=== PATIENT | female | born 2000 | race African-American/Black ===

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

== ENCOUNTER 2018-01-11 18:37 | Emergency (ER) | payer BC, SELFPAY ==
[2018-01-11 19:10] LABS: Bilirubin Negative (Negative); Blood, Urine Negative (Negative); Clarity Clear (Clear); Glucose, Urine (Dipstick) 500 mg/dL (Negative); Leukocyte Negative (Negative); Nitrite Negative (Negative); Protein, Urine (Dipstick) 100 mg/dL (Neg-Trace); Specific Gravity, Urine 1.025 (1.005-1.030); Urobilinogen 0.2 mg/dL (0.2-1.0)
[2018-01-11 19:12] LABS: Pregnancy Test - Urine (BHCG) Negative (Negative); Pregu Control Background? CLEAR/WHITE (CLR/WHITE); Pregu Control Bar Appear? YES (CONTROL BAR); Specific Gravity 1.025 (1.002-1.036)
[2018-01-11 19:22] LABS: Bacteria/HPF Rare-Few HPF (None Seen); RBC/HPF None Seen HPF (0-3); WBC/HPF None Seen HPF (0-3)
[2018-01-11 19:25] LABS: ALT (SGPT) 9 U/L (8-55); AST (SGOT) 10 U/L (5-30); Albumin 4.1 g/dL (3.5-5.0); Alkaline Phosphatase 90 U/L (40-150); Anion Gap 12 mmol/L (10-20); BUN (Urea Nitrogen) 10 mg/dL (8.4-21.0); Bilirubin, Total 0.5 mg/dL (0.2-1.2); Calc. Creatinine Clearance 0 mL/min (70-130); Calcium 9.7 mg/dL (7.8-10.44); Carbon Dioxide 27 mmol/L (22-29); Chloride 104 mmol/L (98-107); Estimated GFR-MDRD Greater than 90; Glucose 261 mg/dL (70-105); Lipase 78 U/L (8-78); Potassium 3.5 mmol/L (3.5-5.1); Protein, Total 7.1 g/dL (6.0-8.3); Sodium 139 mmol/L (136-145)
[2018-01-11 19:32] LABS: Band 2 % (5-11); Eosinophils 1 % (0-10); Hemoglobin 12.7 g/dL (12.0-16.0); Lymphocytes 20 % (28-48); MDiff Complete? YES; Mean Corpuscular HGB CONC 32.7 g/dL (32.0-36.0); Mean Corpuscular Hemoglobin 27.7 pg (25.0-35.0); Mean Corpuscular Volume 84.6 fl (77.0-87.0); Mean Platelet Volume 8.5 fL (7.4-10.4); Monocytes 8 % (0-4); Neutrophil 68 % (31-61); PLT Morphology Comment Appears Adequate; Platelet Count 254 thou/uL (130-400); RBC Distribution Width 11.6 % (11.5-14.5); RBC Morphology Normal; White Blood Cell (WBC) Count 10.5 thou/uL (4.8-10.8)
== END 2018-01-11 19:51 | disposition home or self-care (01) ==
LOC: SCSER 18:37
DX: A60.04 Herpesviral vulvovaginitis (principal); E10.9 Type 1 diabetes mellitus without complications; J45.909 Unspecified asthma, uncomplicated
CPT/HCPCS: 80053; 81003; 81015; 81025; 83690; 85025; 87480; 87491; 87510; 87591; 87660; 99284

== ENCOUNTER 2018-01-17 17:25 | Emergency (ER) | payer SELFPAY ==
[2018-01-17] MEDS ORDERED: Azithromycin 250 MG TAB ONE (18:44)
== END 2018-01-17 19:01 | disposition home or self-care (01) ==
LOC: ERS 17:25
DX: A56.02 Chlamydial vulvovaginitis (principal); E10.9 Type 1 diabetes mellitus without complications; J45.909 Unspecified asthma, uncomplicated; F17.210 Nicotine dependence, cigarettes, uncomplicated
CPT/HCPCS: 99406

== ENCOUNTER 2018-04-09 17:26 | Emergency (ER) | payer SELFPAY ==
[~2018-04-09 17:26] MED LIST: Iopamidol 370 76% 100 ML VIAL ONE
[2018-04-09] MEDS ORDERED: Ondansetron HCl/PF 4 MG/2 ML Vial ONE ×2 (18:21→19:01)
[2018-04-09 19:05] LABS: Hemoglobin 14.1 g/dL (12.0-16.0); Mean Corpuscular HGB CONC 33.6 g/dL (32.0-36.0); Mean Corpuscular Hemoglobin 28.3 pg (25.0-35.0); Mean Corpuscular Volume 84.1 fL (78.0-98.0); Mean Platelet Volume 9.8 fL (7.4-10.4); Platelet Count 202 thou/uL (130-400); RBC Distribution Width 11.2 % (11.5-14.5); Red Blood Cell (RBC) Count 4.98 mill/uL (4.00-5.20); White Blood Cell (WBC) Count 11.1 thou/uL (4.8-10.8)
[2018-04-09 19:14] LABS: ALT (SGPT) 10 U/L (8-55); AST (SGOT) 26 U/L (5-34); Albumin 4.3 g/dL (3.5-5.0); Alkaline Phosphatase 111 U/L (40-150); Anion Gap 17 mmol/L (10-20); BUN (Urea Nitrogen) 6 mg/dL (7.0-18.7); Bilirubin, Total 0.4 mg/dL (0.2-1.2); Calc. Creatinine Clearance 0 mL/min (70-130); Carbon Dioxide 22 mmol/L (22-29); Chloride 105 mmol/L (98-107); Estimated GFR-MDRD Greater than 90; Globulin 3.7 g/dL (2.4-3.5); Glucose 264 mg/dL (70-105); Lipase 22 U/L (8-78); Potassium 4.6 mmol/L (3.5-5.1); Sodium 139 mmol/L (136-145)
[2018-04-09 19:18] LABS: Eosinophils 2 % (0-10); Lymphocytes 18 % (28-48); MDiff Complete? YES; Monocytes 8 % (0-4); Neutrophil 72 % (31-61)
[2018-04-09] MEDS ORDERED: Ondansetron ODT 4 MG TAB ONE (19:28)
[2018-04-09 19:40] LABS: Bilirubin Negative (Negative); Blood, Urine Negative (Negative); Clarity Clear (Clear); Glucose, Urine (Dipstick) 500 mg/dL (Negative); Leukocyte Negative (Negative); Nitrite Negative (Negative); Protein, Urine (Dipstick) Negative (Neg-Trace); Urobilinogen 0.2 mg/dL (0.2-1.0); pH, Urine 7.5 (5.0-9.0)
[2018-04-09 19:41] LABS: Pregnancy Test - Urine (BHCG) Negative (Negative); Pregu Control Background? CLEAR/WHITE (CLR/WHITE); Pregu Control Bar Appear? YES (CONTROL BAR)
--- NOTE | 2018-04-09 21:13 | CT ---
ABDOMEN CT WITHOUT CONTRAST: PELVIS CT WITHOUT CONTRAST: HISTORY: Abdominal pain. COMPARISON: 10/08/2017 TECHNIQUE: An abdomen and pelvis CT is performed without contrast. Reformatted images are submitted. FINDINGS: ABDOMEN: The lung bases are clear. Heart size is normal. The visualized aorta is unremarkable. Sy mmetric attenuation of the psoas muscles. Limited evaluation of the solid organs due to lack of IV contrast. Grossly, no solid organ abnormali ty. Unremarkable gallbladder. No gastrohepatic, retrocrural, or periportal lymphadenopathy. No mesenteric mass, lymphadenopathy, free air, or free fluid. Limited evaluation of the alimentary canal due to lack of oral contrast. The gastric mucosa, the duodenum, and multiple normal caliber small bowel loops are noted. The ileoc ecal junction is normal. Scattered material in a nondistended, nondilated colon. Occasional d iverticulum. No diverticulitis. Normal caliber appendix. Bilaterally, no obstructive uropathy. No evidence of calculi. PELVIS: There is nonspecific fluid in the pelvis, which may be physiologic. Fluid has an attenuatio n coefficient of 23 Hounsfield units. No pelvic mass, lymphadenopathy, or free air. The uterus, and adnexal structures are grossly unremarkable. Grossly unremarkable urinary bladder. No lytic or blastic lesions in the osseous structures. There is a hypodensity in the right adnexa, measuring 1.6 cm, with an attenuation coefficient of 9 Ho unsfield units. The possibility of a right ovarian cyst is raised. IMPRESSION: 1. No evidence of nephrolithiasis or obstructive uropathy. 2. Normal caliber appendix. 3. Complex fluid in the pelvis, which may be physiologic. 4. Hypodensity in the right adnexa, incompletely evaluated. POS: [facility]
== END 2018-04-09 20:34 | disposition home or self-care (01) ==
LOC: SCSER 17:26
DX: N83.201 Unspecified ovarian cyst, right side (principal); E10.65 Type 1 diabetes mellitus with hyperglycemia; J45.909 Unspecified asthma, uncomplicated; F17.210 Nicotine dependence, cigarettes, uncomplicated
CPT/HCPCS: 74176; 80053; 81003; 81025; 83690; 85025; J2405; Q0162

== ENCOUNTER 2018-06-21 13:35 | Emergency (ER) | payer SELFPAY ==
[2018-06-21] MEDS ORDERED: predniSONE 20 MG TAB ONE (13:50)
== END 2018-06-21 14:24 | disposition home or self-care (01) ==
LOC: SCSER 13:35
DX: J45.909 Unspecified asthma, uncomplicated (principal); J06.9 Acute upper respiratory infection, unspecified; E10.9 Type 1 diabetes mellitus without complications; F17.210 Nicotine dependence, cigarettes, uncomplicated
CPT/HCPCS: 94640; 99406; J7506; J7620

== ENCOUNTER → 2018-07-31 | Emergency (ER) | payer SELFPAY ==
[2018-07-31 12:10] LABS: Bilirubin Negative (Negative); Blood, Urine Negative (Negative); Clarity CLEAR (Clear); Glucose, Urine (Dipstick) >=1000 mg/dL (Negative); Leukocyte Negative (Negative); Nitrite Negative (Negative); Pregnancy Test - Urine (BHCG) Negative (Negative); Pregu Control Background? CLEAR/WHITE (CLR/WHITE); Pregu Control Bar Appear? YES (CONTROL BAR); Protein, Urine (Dipstick) Negative (Neg-Trace); Specific Gravity 1.034 (1.002-1.036); Specific Gravity, Urine 1.034 (1.002-1.036); Urobilinogen 0.2 mg/dL (0.2-1.0); pH, Urine 6.5 (5.0-9.0)
[2018-07-31 12:55] LABS: #Basophils 0.1 thou/uL (0.0-0.2); #Eosinphils 0.2 thou/uL (0.0-0.7); #Lymphocytes 2.3 thou/uL (1.20-3.40); #Monocytes 0.8 thou/uL (0.11-0.59); #Neutrophils 7.1 thou/uL (1.40-6.50); %Basophils 0.9 % (0.0-1.0); %Eosinophils 1.8 % (0.0-10.0); %Lymphocytes 22.1 % (28.0-48.0); %Monocytes 7.9 % (0.0-4.0); %Neutrophils 67.4 % (31.0-61.0); Mean Corpuscular HGB CONC 32.3 g/dL (32.0-36.0); Mean Corpuscular Hemoglobin 28.6 pg (25.0-35.0); Mean Corpuscular Volume 88.5 fL (78.0-98.0); Mean Platelet Volume 7.8 fL (7.4-10.4); Platelet Count 269 thou/uL (130-400); RBC Distribution Width 11.8 % (11.5-14.5); Red Blood Cell (RBC) Count 4.89 mill/uL (4.00-5.20); White Blood Cell (WBC) Count 10.6 thou/uL (4.8-10.8)
[2018-07-31 13:23] LABS: ALT (SGPT) 10 U/L (8-55); AST (SGOT) 11 U/L (5-34); Albumin 4.2 g/dL (3.5-5.0); Alkaline Phosphatase 97 U/L (40-150); Anion Gap 10 mmol/L (10-20); BUN (Urea Nitrogen) 8 mg/dL (7.0-18.7); Bilirubin, Total 0.7 mg/dL (0.2-1.2); Calc. Creatinine Clearance 0 mL/min (70-130); Calcium 9.5 mg/dL (7.8-10.44); Carbon Dioxide 23 mmol/L (22-29); Chloride 109 mmol/L (98-107); Estimated GFR-MDRD Greater than 90; Globulin 3.6 g/dL (2.4-3.5); Glucose 123 mg/dL (70-105); Potassium 3.7 mmol/L (3.5-5.1); Protein, Total 7.8 g/dL (6.0-8.3); Sodium 138 mmol/L (136-145)
[2018-07-31 13:26] LABS: BHCG - Serum Negative (NEGATIVE); Pregs Control Background? CLEAR/WHITE (CLR/WHITE); Pregs Control Bar Appear? YES (CONTROL BAR)
--- NOTE | 2018-07-31 14:44 | ULT ---
TRANSABDOMINAL AND TRANSVAGINAL PELVIC ULTRASOUND: Date; 07/31/18 INDICATION: Right-sided pelvic pain with known yeast infection. TECHNIQUE: Greer scale, color Doppler with vascular duplex and spectral analysis was performed of the pelvis via transabdominal and transvaginal approach. FINDINGS: The uterus measures 6.3 x 3.2 x 3.3 cm. Endometrial stripe measures 8.0 mm. The right ovary measures 5.2 x 4.8 x 3.8 cm. There is normal flow to the right ovary. There is 3.4 cm loculated hemorrhagic cyst within the right ovary. The left ovary measures 2.9 x 2.8 x 1.8 cm. There is normal flow to the left ovary. There is a small amount of free fluid in the pelvis. IMPRESSION: 1. 3.4 cm right ovarian hemorrhagic cyst. 2. Mild free fluid in the pelvis. POS: [facility]
[2018-08-01 22:41] LABS: Chlamydia by PCR Not Detected (NotDetected); GC by PCR Not Detected (NotDetected)
== END ==
LOC: ERS 10:42
DX: N83.201 Unspecified ovarian cyst, right side (principal); E10.9 Type 1 diabetes mellitus without complications; J45.909 Unspecified asthma, uncomplicated; F17.210 Nicotine dependence, cigarettes, uncomplicated
CPT/HCPCS: 36415; 36416; 76856; 80053; 81003; 81025; 84703; 85025; 87480; 87491; 87510; 87591; 87660

== ENCOUNTER 2018-10-16 23:13 | Emergency (ER) | payer SELFPAY ==
[2018-10-16 23:55] LABS: #Eosinphils 0.1 thou/uL (0.0-0.7); #Lymphocytes 0.9 thou/uL (1.20-3.40); #Monocytes 0.5 thou/uL (0.11-0.59); #Neutrophils 6.3 thou/uL (1.40-6.50); %Basophils 0.4 % (0.0-1.0); %Eosinophils 1.1 % (0.0-10.0); %Lymphocytes 11.2 % (28.0-48.0); %Monocytes 6.1 % (0.0-4.0); %Neutrophils 81.2 % (31.0-61.0); Hemoglobin 15.9 g/dL (12.0-16.0); Mean Corpuscular HGB CONC 33.1 g/dL (32.0-36.0); Mean Corpuscular Hemoglobin 28.6 pg (25.0-35.0); Mean Corpuscular Volume 86.3 fL (78.0-98.0); Platelet Count 284 thou/uL (130-400); RBC Distribution Width 11.8 % (11.5-14.5); Red Blood Cell (RBC) Count 5.57 mill/uL (4.00-5.20); White Blood Cell (WBC) Count 7.7 thou/uL (4.8-10.8)
[2018-10-17 00:16] LABS: ALT (SGPT) 10 U/L (8-55); AST (SGOT) 11 U/L (5-34); Albumin 4.4 g/dL (3.5-5.0); Alkaline Phosphatase 124 U/L (40-150); Anion Gap 14 mmol/L (10-20); BUN (Urea Nitrogen) 6 mg/dL (7.0-18.7); Bilirubin, Total 0.8 mg/dL (0.2-1.2); Calc. Creatinine Clearance 0 mL/min (70-130); Calcium 9.6 mg/dL (7.8-10.44); Carbon Dioxide 24 mmol/L (22-29); Chloride 103 mmol/L (98-107); Estimated GFR-MDRD Greater than 90; Globulin 3.8 g/dL (2.4-3.5); Glucose 123 mg/dL (70-105); Lipase Less than 4 U/L (8-78); Potassium 3.1 mmol/L (3.5-5.1); Protein, Total 8.2 g/dL (6.0-8.3); Sodium 138 mmol/L (136-145)
[2018-10-17 00:17] LABS: BHCG - Serum Negative (NEGATIVE); Pregs Control Background? CLEAR/WHITE (CLR/WHITE); Pregs Control Bar Appear? YES (CONTROL BAR)
[2018-10-17] MEDS ORDERED: Ondansetron ODT 4 MG TAB ONE (00:36)
[2018-10-17] MEDS ORDERED: Dicyclomine 20 MG TAB ONE (00:36)
[2018-10-17] MEDS ORDERED: Potassium Chloride 20 MEQ TAB ONE (01:16)
== END 2018-10-17 01:22 | disposition home or self-care (01) ==
LOC: ERS 23:13
DX: E87.6 Hypokalemia (principal); R11.2 Nausea with vomiting, unspecified; E10.9 Type 1 diabetes mellitus without complications; J45.909 Unspecified asthma, uncomplicated; F17.210 Nicotine dependence, cigarettes, uncomplicated
CPT/HCPCS: 36415; 80053; 83690; 84703; 85025; 99284; Q0162

== ENCOUNTER 2019-07-10 13:29 | Emergency (ER) | payer BC ==
[2019-07-10 13:56] LABS: #Eosinphils 0.1 thou/uL (0.0-0.7); #Lymphocytes 1.6 thou/uL (1.20-3.40); #Monocytes 0.6 thou/uL (0.11-0.59); #Neutrophils 4.8 thou/uL (1.40-6.50); %Basophils 0.7 % (0.0-1.0); %Eosinophils 1.9 % (0.0-10.0); %Lymphocytes 21.7 % (21.0-51.0); %Neutrophils 66.8 % (42.0-75.0); Hemoglobin 14.5 g/dL (12.0-16.0); Mean Corpuscular HGB CONC 33.7 g/dL (32.0-36.0); Mean Corpuscular Hemoglobin 29.6 pg (27.0-31.0); Mean Corpuscular Volume 87.8 fL (78.0-98.0); Mean Platelet Volume 7.7 fL (7.4-10.4); Platelet Count 257 thou/uL (130-400); RBC Distribution Width 10.7 % (11.5-14.5); White Blood Cell (WBC) Count 7.2 thou/uL (4.8-10.8)
[2019-07-10 14:18] LABS: ALT (SGPT) 9 U/L (8-55); AST (SGOT) 11 U/L (5-34); Albumin 4.1 g/dL (3.5-5.0); Alkaline Phosphatase 96 U/L (40-110); Anion Gap 12 mmol/L (10-20); BUN (Urea Nitrogen) 8 mg/dL (7.0-18.7); Bilirubin, Total 0.4 mg/dL (0.2-1.2); Calc. Creatinine Clearance 0 mL/min (70-130); Calcium 9.4 mg/dL (7.8-10.44); Carbon Dioxide 23 mmol/L (22-29); Chloride 104 mmol/L (98-107); Estimated GFR-MDRD Greater than 90; Globulin 3.3 g/dL (2.4-3.5); Glucose 254 mg/dL (70-105); Lipase 7 U/L (8-78); Potassium 3.9 mmol/L (3.5-5.1); Protein, Total 7.4 g/dL (6.0-8.3); Sodium 135 mmol/L (136-145)
[2019-07-10 16:07] LABS: Bacteria/HPF None Seen HPF (None Seen); Bilirubin Negative (Negative); Blood, Urine Negative (Negative); Clarity Clear (Clear); Glucose, Urine (Dipstick) Greater than 1000 mg/dL (Negative); Leukocyte Negative Leu/uL (Negative); Nitrite Negative (Negative); Protein, Urine (Dipstick) 50 mg/dL (Neg-Trace); RBC/HPF 0-3 HPF (0-3); Squamous Epithelial 0-3 HPF (0-3); Urobilinogen Normal mg/dL (Less than 2); WBC/HPF 0-3 HPF (0-3)
[2019-07-10 16:08] LABS: Pregnancy Test - Urine (BHCG) Negative (Negative); Pregu Control Background? CLEAR/WHITE (CLR/WHITE); Pregu Control Bar Appear? YES (CONTROL BAR); Specific Gravity 1.028 (1.002-1.036)
[2019-07-10 16:25] LABS: BHCG - Serum Negative (NEGATIVE); Pregs Control Background? CLEAR/WHITE (CLR/WHITE); Pregs Control Bar Appear? YES (CONTROL BAR)
== END 2019-07-10 16:05 | disposition home or self-care (01) ==
LOC: ERS 13:29
DX: R10.9 Unspecified abdominal pain (principal); E10.65 Type 1 diabetes mellitus with hyperglycemia; J45.909 Unspecified asthma, uncomplicated; F17.290 Nicotine dependence, other tobacco product, uncomplicated
CPT/HCPCS: 36415; 80053; 81003; 81015; 81025; 83690; 84703; 85025; 99284

== ENCOUNTER 2020-02-25 22:38 | Emergency (ER) | payer BC | END 2020-02-25 23:55 | disposition left against medical advice (07) | LOC: ERS 22:38 | DX: Z53.21 Procedure and treatment not carried out due to patient leaving prior to being seen by health care provider (principal) ==

== ENCOUNTER 2020-03-25 08:25 | Emergency (ER) | payer BC ==
[2020-03-25] MEDS ORDERED: Metoclopramide HCl 10 MG/2 ML VIAL ONE (08:42)
[2020-03-25 09:00] LABS: Hemoglobin 14.4 g/dL (12.0-16.0); Mean Corpuscular HGB CONC 31.8 g/dL (32.0-36.0); Mean Corpuscular Hemoglobin 28.4 pg (27.0-31.0); Mean Corpuscular Volume 89.4 fL (78.0-98.0); Mean Platelet Volume 8.3 fL (7.4-10.4); Platelet Count 318 thou/uL (130-400); RBC Distribution Width 11.2 % (11.5-14.5); Red Blood Cell (RBC) Count 5.08 mill/uL (4.20-5.40)
[2020-03-25 09:06] LABS: BHCG - Serum Negative (NEGATIVE); Pregs Control Background? CLEAR/WHITE (CLR/WHITE); Pregs Control Bar Appear? YES (CONTROL BAR)
[2020-03-25 09:17] LABS: ALT (SGPT) 13 U/L (8-55); AST (SGOT) 25 U/L (5-34); Albumin 4.5 g/dL (3.5-5.0); Alkaline Phosphatase 96 U/L (40-110); Anion Gap 18 mmol/L (10-20); BUN (Urea Nitrogen) 17 mg/dL (7.0-18.7); Bilirubin, Total 0.6 mg/dL (0.2-1.2); Calc. Creatinine Clearance 0 mL/min (70-130); Calcium 9.8 mg/dL (7.8-10.44); Carbon Dioxide 21 mmol/L (22-29); Chloride 101 mmol/L (98-107); Estimated GFR-MDRD 77; Globulin 4.2 g/dL (2.4-3.5); Glucose 407 mg/dL (70-105); Lipase 15 U/L (8-78); Potassium 4.2 mmol/L (3.5-5.1); Protein, Total 8.7 g/dL (6.0-8.3); Sodium 136 mmol/L (136-145)
[2020-03-25 09:22] LABS: Band 1 % (5-11); Eosinophils 1 % (0-10); Lymphocytes 11 % (21-51); MDiff Complete? YES; Monocytes 6 % (0-10); Neutrophil 81 % (42-75); Platelet Morphology Comment Appears Adequate; RBC Morphology Normal
[2020-03-25 09:25] LABS: Bilirubin Negative (Negative); Blood, Urine Trace (Negative); Clarity Clear (Clear); Glucose, Urine (Dipstick) Greater than 1000 mg/dL (Negative); Leukocyte Negative Leu/uL (Negative); Nitrite Negative (Negative); Protein, Urine (Dipstick) 10 mg/dL (Neg-Trace); RBC/HPF 0-3 HPF (0-3); Squamous Epithelial 0-3 HPF (0-3); Urobilinogen Normal mg/dL (Less than 2); WBC/HPF 0-3 HPF (0-3)
[2020-03-25 09:30] LABS: Bacteria/HPF 1+ HPF (None Seen)
[2020-03-25] MEDS ORDERED: Promethazine HCl 25 MG/ML VIAL ONE (09:39)
[2020-03-25 10:36] LABS: Base Excess-Venous -1.9 mmol/L (-2.0 to 3.0); Bicarbonate (HCO3v) 23.9 mmol/L (22.0-28.0); CO2 Tension (PvCO2) 43.3 mmHg (40.0-50.0); Calcium, Ionized 1.12 mmol/L (See Comments:); Chloride 104 mmol/L (98-107); Hemoglobin - Calc 14.3 g/dL (12.0-16.0); Sodium 141 mmol/L (138-145); T. Carbon Dioxide 25.2 mmol/L (22.0-28.0); vO2 Saturation-calc 43.9 % (60.0-85.0)
== END 2020-03-25 11:42 | disposition home or self-care (01) ==
LOC: ERS 08:25
DX: F12.188 Cannabis abuse with other cannabis-induced disorder (principal); R11.2 Nausea with vomiting, unspecified; E10.9 Type 1 diabetes mellitus without complications; J45.909 Unspecified asthma, uncomplicated; F17.290 Nicotine dependence, other tobacco product, uncomplicated; Z79.4 Long term (current) use of insulin
CPT/HCPCS: 36415; 36416; 80053; 81003; 81015; 82010; 82271; 82330; 82803; 83605; 83690; 83735; 84703; 85025; 96365; 96375; J2550; J2765

== ENCOUNTER 2020-05-02 19:35 | Emergency (ER) | payer BC | END 2020-05-02 21:20 | disposition left against medical advice (07) | LOC: ERS 19:35 | DX: Z53.21 Procedure and treatment not carried out due to patient leaving prior to being seen by health care provider (principal) ==

== ENCOUNTER 2020-08-04 20:53 | Observation (INO) | payer SELFPAY ==
[2020-08-04 21:32] LABS: #Lymphocytes 1.2 thou/uL (1.20-3.40); #Monocytes 0.8 thou/uL (0.11-0.59); #Neutrophils 16.9 thou/uL (1.40-6.50); %Basophils 0.1 % (0.0-1.0); %Eosinophils 0.1 % (0.0-10.0); %Lymphocytes 6.2 % (21.0-51.0); %Monocytes 4.3 % (0.0-10.0); %Neutrophils 89.3 % (42.0-75.0); Hemoglobin 13.5 g/dL (12.0-16.0); Mean Corpuscular HGB CONC 32.2 g/dL (32.0-36.0); Mean Corpuscular Hemoglobin 28.5 pg (27.0-31.0); Mean Corpuscular Volume 88.6 fL (78.0-98.0); Mean Platelet Volume 7.2 fL (7.4-10.4); Platelet Count 295 thou/uL (130-400); RBC Distribution Width 11.6 % (11.5-14.5); Red Blood Cell (RBC) Count 4.72 mill/uL (4.20-5.40); White Blood Cell (WBC) Count 18.9 thou/uL (4.8-10.8)
[2020-08-04 21:40] LABS: BHCG - Serum Negative (NEGATIVE); Pregs Control Background? CLEAR/WHITE (CLR/WHITE); Pregs Control Bar Appear? YES (CONTROL BAR)
[2020-08-04 21:52] LABS: ALT (SGPT) 13 U/L (8-55); AST (SGOT) 12 U/L (5-34); Albumin 4.4 g/dL (3.5-5.0); Alkaline Phosphatase 93 U/L (40-110); Anion Gap 16 mmol/L (10-20); BUN (Urea Nitrogen) 11 mg/dL (7.0-18.7); Bilirubin, Total 0.7 mg/dL (0.2-1.2); Calc. Creatinine Clearance 0 mL/min (70-130); Calcium 9.7 mg/dL (7.8-10.44); Carbon Dioxide 25 mmol/L (22-29); Chloride 98 mmol/L (98-107); Estimated GFR-MDRD Greater than 90; Globulin 3.5 g/dL (2.4-3.5); Glucose 229 mg/dL (70-105); Lipase 9 U/L (8-78); Potassium 3.7 mmol/L (3.5-5.1); Protein, Total 7.9 g/dL (6.0-8.3); Sodium 135 mmol/L (136-145)
[2020-08-04] MEDS ORDERED: Ondansetron PF 4 MG/2 ML Vial ONE (22:06)
[2020-08-04 22:23] LABS: Bilirubin Negative (Negative); Blood, Urine Negative (Negative); Clarity Turbid (Clear); Glucose, Urine (Dipstick) Greater than 1000 mg/dL (Negative); Ketone, Urine 150 mg/dL (Negative); Leukocyte Negative Leu/uL (Negative); Nitrite Negative (Negative); Protein, Urine (Dipstick) 30 mg/dL (Neg-Trace); Specific Gravity, Urine 1.034 (1.002-1.036); Urobilinogen Normal mg/dL (Less than 2); WBC/HPF 0-3 HPF (0-3); pH, Urine 6.5 (5.0-9.0)
[2020-08-04 22:24] LABS: Bacteria/HPF Rare-Few HPF (None Seen)
--- NOTE | 2020-08-04 23:30 | PDOC.FPRHP ---
- History of Present Illness Chief Complaint: Vomiting History of Present Illness: This is a 20yo F with PMH significant for type 1 DM and mild intermittent asthma who presents to the ER with CC of NV. She reports she has been vomiting since Tuesday morning. She went to [facility] earlier today and was sent home with nausea med s. She reports that she has not been able to tolerate PO intake during this time. She states she did smoke marijuana on Tuesday, has not had NV with smoking weed previously. Used same dealer. Denies synthetic marijuana. Reports hot showers improve symptoms. Denies chest pain, palpitations. Endorses SOB. Patient does not have a pump and uses SQ insulin. She reports history of DKA in April and is unsure of the cause at that time. ED Course: diphenhydramine, haldol, zofran, NS - Allergies/Adverse Reactions Allergies Allergy/AdvReac Type Severity Reaction Status Date / Time No Known Allergies Allergy Verified 08/05/20 00:39 - Home Medications Medication Instructions Recorded Confirmed Type Insulin Aspart [Novolog Flexpen] 1 ml SC PRN PRN 08/05/20 08/05/20 History Insulin Glargine,Hum.Rec.Anlog 15 units SQ HS 08/05/20 08/05/20 History [Lantus] - History PMHx: asthma, type 1 DM PSHx: tympanostomy tubes b/l FHx: DM both sides type 1 and 2 Social: tobacco use - 2-3 black and milds/day x 1 year, occasionally smokes weed - smoked on Tuesday; occasional alcohol use works at [employer] Allergies: none - Review of Systems General: reports: weight/appetite/sleep changes. denies: fever/chills, night sweats, fatigue Eyes: denies: vision changes ENT: denies: nasal congestion Respiratory: reports: shortness of breath, exercise intolerance. denies: cough, congestion Cardiovascular: denies: chest pain, palpitation, edema Gastrointestinal: reports: nausea, vomiting. denies: diarrhea, constipation, abdominal pain Genitourinary: denies: dysuria Skin: denies: rashes Musculoskeletal: denies: swelling Neurological: denies: numbness, weakness - Vital signs BP: 142/86 HR: 78 RR: 18 Tmax: 99.5 Pox: 100% on RA Wt: 65 kg - Physical Exam Constitutional: awake, alert and oriented -Constitutional: Appears uncomfortable HEENT: normocephalic and atraumatic, PERRLA, EOMI, grossly normal vision, grossly normal hearing Neck: supple, FROM Heart: RRR, normal S1/S2 Lungs: CTAB, no respiratory distress Abdomen: soft, non-tender, bowel sounds present Musculoskeletal: normal structure, normal tone Neurological: no focal deficit, CN II-XII intact Skin: no rash/lesions, no jaundice Heme/Lymphatic: no unusual bruising or bleeding, no purpura, no petechia Psychiatric: normal mood and affect, good judgment and insight, intact recent and remote memory FMR H&P: Results - Labs Result Diagrams: 08/05/20 02:07 08/05/20 05:39 Lab results: WBC 18.9 thou/uL (4.8-10.8) H 08/04/20 21:24 Hgb 13.5 g/dL (12.0-16.0) 08/04/20 21:24 Hct 41.8 % (36.0-47.0) 08/04/20 21:24 MCV 88.6 fL (78.0-98.0) 08/04/20 21:24 Plt Count 295 thou/uL (130-400) 08/04/20 21:24 Neutrophils % 89.3 % (42.0-75.0) H 08/04/20 21:24 Sodium 135 mmol/L (136-145) L 08/04/20 21:24 Potassium 3.7 mmol/L (3.5-5.1) 08/04/20 21:24 Chloride 98 mmol/L (98-107) 08/04/20 21:24 Carbon Dioxide 25 mmol/L (22-29) 08/04/20 21:24 BUN 11 mg/dL (7.0-18.7) 08/04/20 21:24 Creatinine 0.84 mg/dL (0.6-1.1) 08/04/20 21:24 Glucose 229 mg/dL (70-105) H 08/04/20 21:24 Calcium 9.7 mg/dL (7.8-10.44) 08/04/20 21:24 Total Bilirubin 0.7 mg/dL (0.2-1.2) 08/04/20 21:24 AST 12 U/L (5-34) 08/04/20 21:24 ALT 13 U/L (8-55) 08/04/20 21:24 Alkaline Phosphatase 93 U/L (40-110) 08/04/20 21:24 Serum Total Protein 7.9 g/dL (6.0-8.3) 08/04/20 21:24 Albumin 4.4 g/dL (3.5-5.0) 08/04/20 21:24 Lipase 9 U/L (8-78) 08/04/20 21:24 Urine Ketones 150 mg/dL (Negative) A 08/04/20 22:09 Urine Blood Negative (Negative) 08/04/20 22:09 Urine Nitrite Negative (Negative) 08/04/20 22:09 Ur Leukocyte Esterase Negative Tessa/uL (Negative) 08/04/20 22:09 Urine RBC 4-6 HPF (0-3) A 08/04/20 22:09 Urine WBC 0-3 HPF (0-3) 08/04/20 22:09 Ur Squamous Epith Cells 4-6 HPF (0-3) A 08/04/20 22:09 Urine Bacteria Rare-Few HPF (None Seen) 08/04/20 22:09 FMR H&P: A/P - Plan Intractable vomiting likely 2/2 to early DKA vs. cannabinoid hyperemesis sydrome - patient reports smoking marijuana occasionally with last time being on Tuesday, reports improvement with hot showers - episode of DKA in April - Glucose: 229, No Gap, Ketones: 150, B-hydrox: 1.86 - will give nighttime dose of 15 units of Lantus - will schedule Zofran q6 hours and Reglan q8 hrs - will give one phenergan suppository - LR @ 125 mls/hr Type I DM - q 2hr glucose check x3; if all under 200, can space out checks to q 4hrs - will continue to monitor BMP closely to assess for gap and potassium, no gap on admission - K: 3.7 - mod SSI ordered, will give nighttime dose of 15 units of Lantus Mild-intermittent Asthma - uses albuterol prn at home Marijuana use - will encourage cessation - UDS pending PCP: CC, denies PCP Code: Full Diet: CC IVF: LR @ 125 mls/hr Dispo: will admit to medical for further medical management; likely LOS < 48 hours FMR H&P: Upper Level - Plan Date/Time: 08/04/20 2330 I, Kenzie Sanchez MD, have evaluated this patient and agree with findings/plan as outlined by qa internship resident. Pertinent changes/additions are listed here. This is a 20yo F w/ PMH of type 1 DM who presents with CC of NV. Started with NV on Tuesday. Went to [facility] and was sent home with nausea meds. She states she has been using her insulin, she does not have a pump. She previously had DKA in April. Patient states that she does smoke weed occasionally. She last smoked on Tuesday. Denies synthetic marijuana. States symptoms are improved with hot showers. In the ER, was given haldol, benadryl, zofran, and 1L NS. Her VS have been stable, mildly hypertensive. Her labs were significant for ketones in her urine, elevated BHB, gap of 12. Will admit patient to med, obs for intractable NV likely 2/2 marijuana use. Will give zofran and reglan PRN. Will give phenergan suppository. UDS pending. Will give nighttime dose of insulin. Not currently in DKA, but will monitor sugars q2hrs. If sugars <200 for next few values will space out to q4hr glucose checks. BMP at 0200 to make sure gap not opening. Will put in for mod SS. Encourage marijuana cessation. Will give IVF, encourage PO hydration. Code: Full PCP: CC - does not see a PCP, has mammography supervisor at [facility] Case discussed with Dr. Flynn. See qa internship note for full history. Addendum - Attending - Attending Attestation Date/Time: 08/04/20 1150 I personally evaluated the patient and discussed the management with Dr. Duarte and Dr. Sanchez I agree with the History, Examination, Assessment and Plan documented above with any addition or exceptions noted below. Admit for intractable vomiting with hyperglycemia with ketosis. Trend and treat glucose throughout the night. Continue IVFs. Treat emesis with scheduled medications. Encouraged hot shower to improve symptoms. Patient aware of side effects of marijuana use. Shania
[2020-08-04] MEDS ORDERED: diphenhydrAMINE 50 MG/ML VIAL ONE (23:34)
[2020-08-04] MEDS ORDERED: Haloperidol Lactate 5 MG/ML VIAL ONE (23:34)
[2020-08-05] MEDS ORDERED: Dextrose 5% in Water 1,000 ML IV PRN (00:29)
[2020-08-05] MEDS ORDERED: HumaLOG 300 UNITS/3 ML VIAL SC PRN ×2 (00:29)
[2020-08-05] MEDS ORDERED: Dextrose 50% Abboject 50 ML SYRINGE SLOW IVP PRN (00:29)
[2020-08-05] MEDS ORDERED: Ondansetron PF 4 MG/2 ML Vial IVP PRN (00:30)
[2020-08-05] MEDS ORDERED: Sodium Chloride 0.9% 1,000 ML IV SCH (00:30)
[2020-08-05] MEDS ORDERED: Ondansetron ODT 4 MG TAB SL PRN (00:30)
[2020-08-05 00:52] VITALS: BMI 25.6
[2020-08-05] MEDS ORDERED: Insulin Glargine 15 UNITS in Pre-Filled Syringe 1 EACH SC SCH ×2 (01:00→21:00)
[2020-08-05] MEDS ORDERED: Promethazine HCl 12.5 MG SUPP PR SCH (01:00)
[2020-08-05] MEDS ORDERED: Lactated Ringer's 1,000 ML IV SCH ×2 (01:00→07:30)
[2020-08-05 02:32] LABS: Mean Corpuscular HGB CONC 34.6 g/dL (32.0-36.0); Mean Corpuscular Hemoglobin 30.8 pg (27.0-31.0); Mean Platelet Volume 7.3 fL (7.4-10.4); Platelet Count 248 thou/uL (130-400); RBC Distribution Width 11.6 % (11.5-14.5); Red Blood Cell (RBC) Count 4.23 mill/uL (4.20-5.40); White Blood Cell (WBC) Count 17.5 thou/uL (4.8-10.8)
[2020-08-05 02:37] LABS: Anion Gap 16 mmol/L (10-20); BUN (Urea Nitrogen) 12 mg/dL (7.0-18.7); Calc. Creatinine Clearance 125 mL/min (70-130); Calcium 9.1 mg/dL (7.8-10.44); Carbon Dioxide 22 mmol/L (22-29); Chloride 101 mmol/L (98-107); Estimated GFR-MDRD Greater than 90; Glucose 212 mg/dL (70-105); Potassium 3.5 mmol/L (3.5-5.1); Sodium 135 mmol/L (136-145)
[2020-08-05 02:51] LABS: Amphetamine Not Detected (NotDetected); Barbiturates Screen Not Detected (NotDetected); Benzodiazepine Screen Not Detected (NotDetected); Cocaine Metabolite Screen Not Detected (NotDetected); Medtox Control Line Valid? VALID (VALID); Medtox Reader # READER 4; Methadone Not Detected (NotDetected); Methamphetamine Not Detected (NotDetected); Opiate Screen Not Detected (NotDetected); Oxycodone Screen Not Detected (NotDetected); Phencyclidine (PCP) Not Detected (NotDetected); THC/Cannabinoid Screen Detected (NotDetected); Tricyclic Screen Not Detected (NotDetected)
[2020-08-05 02:56] LABS: Band 9 % (5-11); Lymphocytes 13 % (21-51); MDiff Complete? YES; Monocytes 2 % (0-10); Neutrophil 76 % (42-75)
[2020-08-05] MEDS ORDERED: Ondansetron PF 4 MG/2 ML Vial IVP SCH (06:00)
[2020-08-05] MEDS ORDERED: Metoclopramide HCl 10 MG/2 ML VIAL IVP SCH (06:00)
[2020-08-05 06:57] LABS: Anion Gap 14 mmol/L (10-20); BUN (Urea Nitrogen) 10 mg/dL (7.0-18.7); Calc. Creatinine Clearance 134 mL/min (70-130); Calcium 9.1 mg/dL (7.8-10.44); Carbon Dioxide 23 mmol/L (22-29); Chloride 101 mmol/L (98-107); Estimated GFR-MDRD Greater than 90; Glucose 134 mg/dL (70-105); Potassium 3.3 mmol/L (3.5-5.1); Sodium 135 mmol/L (136-145)
[2020-08-05] MEDS ORDERED: Calcium Carbonate 500 MG ChewTAB PO PRN (07:27)
[2020-08-05] MEDS ORDERED: Potassium Chloride 20 MEQ TAB PO SCH (07:30)
[2020-08-05] MEDS ORDERED: Albuterol Sulfate 2.5 mg/3 ml Neb NEB SCH (07:30)
--- NOTE | 2020-08-05 07:31 | PDOC.FM ---
- Subjective Subjective: This morning patient is doing well. Had 2 episodes of vomiting overnight. Mild nausea but improved per patient. Abd cramping, but no acute pains. Sxs started Tuesday. Admits to THC use approx 3 times per week. Hot showers improve nausea. Hungry this morning, wants to try breakfast. Eager for discharge. Denies fever/chills, diarrhea, CP, SOB, STERN, vision changes, urinary sxs. States was tested for COVID 6 days ago and negative. - Objective MAR Reviewed: Yes Vital Signs & Weight: Vital Signs (12 hours) Temp Pulse BP Pulse Ox 08/05/20 00:41 99.5 F 92 151/98 H 98 Weight Weight 65.544 kg I&O: 08/04/20 08/05/20 08/06/20 06:59 06:59 06:59 Intake Total 1000 Output Total 250 Balance 750 Result Diagrams: 08/05/20 02:07 08/05/20 05:39 Phys Exam - Physical Examination Constitutional: NAD (resting comfortably) HEENT: moist MMs Neck: supple Respiratory: no rales, no rhonchi BL end-exp wheeze throughout Cardiovascular: RRR Gastrointestinal: soft, non-tender, no distention, positive bowel sounds Musculoskeletal: no edema Neurological: moves all 4 limbs Psychiatric: normal affect, A&O x 3 Dx/Plan (1) Intractable nausea and vomiting Code(s): R11.2 - NAUSEA WITH VOMITING, UNSPECIFIED Status: Acute (2) DM (diabetes mellitus), type 1, uncontrolled Code(s): E10.65 - TYPE 1 DIABETES MELLITUS WITH HYPERGLYCEMIA Status: Chronic - Plan Plan: 20yo AAF with Type 1 DM, Asthma presents for intractable nausea and vomiting #Intractable vomiting likely 2/2 to early DKA vs. cannabinoid hyperemesis syndrome vs viral gastroenteritis - patient reports smoking marijuana 3 times per week with last time being on Tuesday, reports improvement with hot showers and heating pads - episode of DKA in April - Glucose: low 200s to 100s, No Gap, Ketones: 150, B-hydrox: 1.86 - Continue home lantus 15u QHS and SS - Zofran q6 hours and Reglan q8 hrs - LR @ 100cc/hr - Will trial PO intake this AM and monitor sxs #Type I DM - BG 200->135 - Replace K as needed, no AG - A1C 8.0 #Mild-intermittent Asthma - uses albuterol prn at home - wheeze on exam, will give albuterol, may benefit from daily steroid inhaler in future, will need OP workup #Marijuana use - will encourage cessation - UDS positive - possibly contributing to presenting CC PCP: CC, denies PCP Code: Full Diet: CC IVF: LR @ 100 mls/hr VTE: SCDs Dispo: Admitted to medical obs for intractable n/v. Sxs improved this AM, will monitor with trial of PO intake. Monitor BG and lytes. Given information on [facility] for PCP and encouraged to establish with a PCP. Counseled on THC cessation. Addendum - Attending - Attending Attestation Date/Time: 08/05/20 3013 I personally evaluated the patient and discussed the management with Dr. Salas. I agree with the History, Examination, Assessment and Plan documented above with any addition or exceptions noted below.
[2020-08-05 08:56] VITALS: BP 149/90; TEMP 99.4
[2020-08-05] MEDS ORDERED: Pantoprazole 40 MG VIAL IVP SCH (09:00)
[2020-08-05] MEDS ORDERED: Ondansetron ODT 4 MG TAB PO PRN (09:30)
[2020-08-05 14:13] LABS: Free T4 (Free Thyroxine) 1.17 ng/dL (0.70-1.48)
[2020-08-05 15:56] LABS: Base Excess-Venous 0.5 mmol/L (-2.0 to 3.0); Bicarbonate (HCO3v) 25.2 mmol/L (22.0-28.0); CO2 Tension (PvCO2) 40.1 mmHg (40.0-50.0); Calcium, Ionized 1.09 mmol/L (1.15-1.33); Chloride 101 mmol/L (98-107); Hemoglobin - Calc 15.2 g/dL (12.0-16.0); Potassium 3.9 mmol/L (3.5-5.1); Sodium 136 mmol/L (138-145); T. Carbon Dioxide 26.5 mmol/L (22.0-28.0); vO2 Saturation-calc 52.4 % (60.0-85.0)
--- NOTE | 2020-08-06 03:14 | DIS ---
DATE OF ADMISSION: 08/04/2020 DATE OF DISCHARGE: 08/05/2020 The patient left AMA on 08/05/2020. ADMITTING ATTENDING: Marylou Flynn MD DISCHARGE ATTENDING: Ulises Ortez MD CONSULTS: None. PROCEDURES: None. PRIMARY DIAGNOSES: Intractable nausea and vomiting, likely secondary to cannabinoid hyperemesis syndrome versus viral gastroenteritis. SECONDARY DIAGNOSES: 1. Type 1 diabetes. 2. Mild intermittent asthma. 3. Marijuana use. DISCHARGE MEDICATIONS: 1. Lantus 15 units subcu at bedtime. 2. NovoLog sliding scale as directed. DISCONTINUED MEDICATIONS: None. HISTORY OF PRESENT ILLNESS AND HOSPITAL COURSE: The patient is a 20-year-old female with history of type 1 diabetes with recent DKA in March at [facility], who presented for nausea and vomiting for the past two days. The patient states it was acute onset, unable to keep any solids or liquids down. She endorsed mild abdominal cramping. She admits using THC approximately two times per week and that hot showers improve her nausea. She denies any recent illness. No fevers or chills. She was given nausea medicines in the emergency department with mild improvement and admitted for intractable nausea and vomiting, likely secondary to her cannabinoid hyperemesis syndrome. The patient was monitored overnight with mild improvement with IV fluids and scheduled antiemetics. Her labs were trended with a mild hypokalemia that was replaced. However, patient's blood sugars remained in the 100s and low 200s and she did not have an acidosis nor an anion gap. The following morning, the patient was very eager to be discharged. However, discussed with the patient the risks of being discharged at her current state when she is unable to tolerate anything by mouth and her risk of progressing into DKA in the future. The patient voiced agreement understanding. Initially stated that she would monitor her symptoms this morning and see how she did throughout the day. Her IV fluids were reduced and her nausea medicines changed to p.r.n. and breakfast ordered for the patient. Later in the morning, was paged by nurse as the patient was stating she wanted to leave AMA. visited with the patient and discussed the risks of leaving AMA due to her current inability to tolerate p.o. as she vomited up most of her attempted breakfast. The risks of leaving AMA included dehydration, acute kidney injury, and even progression into DKA that could result in . The patient states that she is able to manage her nausea and vomiting at home and wants to leave AMA and voiced understanding of the risks associated with this. The patient then signed the [facility] paperwork and left. The patient left [facility] on 08/05/2020 at approximately 10:45 a.m. Job ID: [id number]
== END 2020-08-05 10:49 | disposition home or self-care (01) ==
LOC: ERS 20:53 → T4-A 23:25
PROVIDERS: ADMIT Student in an Organized Health Care Education/Training Program; ATTEND Student in an Organized Health Care Education/Training Program
DX: R11.2 Nausea with vomiting, unspecified (principal); E10.10 Type 1 diabetes mellitus with ketoacidosis without coma; J45.20 Mild intermittent asthma, uncomplicated; F17.210 Nicotine dependence, cigarettes, uncomplicated; E87.6 Hypokalemia; Z53.29 Procedure and treatment not carried out because of patient's decision for other reasons
CPT/HCPCS: 36415; 36416; 80048; 80053; 80306; 81003; 81015; 82010; 82330; 82803; 83036; 83690; 84439; 84443; 84481; 84703; 85025; 96361; 96374; 96375; 96376; G0378; J1200; J1630; J1815; J2405; J2765; Q0162

== ENCOUNTER 2020-08-06 14:37 | Observation (INO) | payer SELFPAY ==
[2020-08-06 16:29] LABS: Acetaminophen Less than 6.0 mcg/mL (10.0-30.0); Alcohol Less than 10 mg/dL (Less than 10); Salicylate Less than 8.0 mg/dL (15.0-30.0)
[2020-08-06 16:57] LABS: Bilirubin Negative (Negative); Blood, Urine Trace (Negative); Clarity Extra Turbid (Clear); Glucose, Urine (Dipstick) Normal (Negative); Ketone, Urine 100 mg/dL (Negative); Leukocyte 500 Leu/uL (Negative); Nitrite Negative (Negative); Protein, Urine (Dipstick) 50 mg/dL (Neg-Trace); Specific Gravity, Urine 1.025 (1.002-1.036); Squamous Epithelial Greater than 50 HPF (0-3); Urobilinogen 3 mg/dL (Less than 2); pH, Urine 7.5 (5.0-9.0)
[2020-08-06] MEDS ORDERED: Haloperidol Lactate 5 MG/ML VIAL ONE (17:02)
[2020-08-06] MEDS ORDERED: diphenhydrAMINE 50 MG/ML VIAL ONE (17:02)
[2020-08-06 17:05] LABS: Amphetamine Not Detected (NotDetected); Barbiturates Screen Not Detected (NotDetected); Benzodiazepine Screen Not Detected (NotDetected); Cocaine Metabolite Screen Not Detected (NotDetected); Medtox Control Line Valid? VALID (VALID); Medtox Reader # READER 1; Methadone Not Detected (NotDetected); Methamphetamine Not Detected (NotDetected); Opiate Screen Not Detected (NotDetected); Oxycodone Screen Not Detected (NotDetected); Phencyclidine (PCP) Not Detected (NotDetected); THC/Cannabinoid Screen Detected (NotDetected); Tricyclic Screen Not Detected (NotDetected)
[2020-08-06 17:09] LABS: Bacteria/HPF 1+ HPF (None Seen)
[2020-08-06 17:14] LABS: #Lymphocytes 2.3 thou/uL (1.20-3.40); #Monocytes 1.6 thou/uL (0.11-0.59); #Neutrophils 13.9 thou/uL (1.40-6.50); %Basophils 0.3 % (0.0-1.0); %Eosinophils 0.2 % (0.0-10.0); %Lymphocytes 12.9 % (21.0-51.0); %Monocytes 8.9 % (0.0-10.0); %Neutrophils 77.7 % (42.0-75.0); Hemoglobin 15.8 g/dL (12.0-16.0); Mean Corpuscular HGB CONC 32.4 g/dL (32.0-36.0); Mean Corpuscular Hemoglobin 28.9 pg (27.0-31.0); Mean Corpuscular Volume 89.3 fL (78.0-98.0); Mean Platelet Volume 7.3 fL (7.4-10.4); Platelet Count 336 thou/uL (130-400); RBC Distribution Width 12.1 % (11.5-14.5); Red Blood Cell (RBC) Count 5.45 mill/uL (4.20-5.40); White Blood Cell (WBC) Count 17.8 thou/uL (4.8-10.8)
[2020-08-06 17:25] LABS: Albumin 4.4 g/dL (3.5-5.0)
[2020-08-06 17:26] LABS: Chloride 98 mmol/L (98-107); Sodium 131 mmol/L (136-145)
[2020-08-06 17:27] LABS: Calcium 9.7 mg/dL (7.8-10.44); Glucose 91 mg/dL (70-105)
[2020-08-06 17:28] LABS: Globulin 4.4 g/dL (2.4-3.5); Protein, Total 8.8 g/dL (6.0-8.3)
[2020-08-06 17:29] LABS: Anion Gap 22 mmol/L (10-20); Bilirubin, Total 1.4 mg/dL (0.2-1.2); Carbon Dioxide 17 mmol/L (22-29)
[2020-08-06 17:30] LABS: Alkaline Phosphatase 92 U/L (40-110)
[2020-08-06 17:31] LABS: BUN (Urea Nitrogen) 10 mg/dL (7.0-18.7); Calc. Creatinine Clearance 0 mL/min (70-130); Estimated GFR-MDRD Greater than 90
[2020-08-06 17:32] LABS: AST (SGOT) 36 U/L (5-34)
[2020-08-06 17:33] LABS: ALT (SGPT) 16 U/L (8-55); Lipase Less than 4 U/L (8-78)
[2020-08-06 17:36] LABS: Potassium 5.6 mmol/L (3.5-5.1)
[2020-08-06] MEDS ORDERED: cefTRIAXone\\ROCEPHIN 1 GM VIAL ONE (18:47)
[2020-08-06 22:14] LABS: Base Excess-Venous 1.5 mmol/L (-2.0 to 3.0); Bicarbonate (HCO3v) 21.9 mmol/L (22.0-28.0); CO2 Tension (PvCO2) 24.1 mmHg (40.0-50.0); Calcium, Ionized 0.81 mmol/L (1.15-1.33); Chloride 104 mmol/L (98-107); Hemoglobin - Calc 14.1 g/dL (12.0-16.0); Potassium 3.4 mmol/L (3.5-5.1); Sodium 132 mmol/L (138-145); T. Carbon Dioxide 22.7 mmol/L (22.0-28.0); vO2 Saturation-calc 99.8 % (60.0-85.0)
[2020-08-06] MEDS ORDERED: NS 0.9% w/ 20 MEQ KCL 1,000 ML IV PRN ×2 (22:18)
[2020-08-06] MEDS ORDERED: Electrolyte Replacement Protoc 1 EACH EACH IVPB PRN (22:18)
[2020-08-06] MEDS ORDERED: Sodium Chloride 0.9% 1,000 ML IV PRN ×4 (22:18)
[2020-08-06] MEDS ORDERED: Ondansetron ODT 4 MG TAB PO PRN (22:18)
[2020-08-06] MEDS ORDERED: Dextrose 5 %-0.45 % NaCl 1,000 ML IV PRN (22:18)
[2020-08-06] MEDS ORDERED: D5 1/2 NS w/20 mEq KCL 1,000 ML IV PRN (22:18)
--- NOTE | 2020-08-06 22:28 | PDOC.FPRHP ---
- History of Present Illness Chief Complaint: Frequent vomiting History of Present Illness: Patient is a 20 year old female with a history of chronic marijuana use and DM1 who presents to the ED with complains of continuous nausea and frequent vomiting since 08/03. The patient was recently admitted on 08/04 for intractable nausea and vomiting. She was started on IV fluids and scheduled antiemetics. The patient signed out AMA on 08/05. She says she was "hardheaded" and regrets this decision. She reports her symptoms are unchanged since leaving the hospital. She reports 10 episodes of vomiting in the past 24 hours. She also complains of decreased appetite and inability to stay hydrated. She denies headache, fever, chills, lightheadedness, dizziness and abdominal pain. She reports checking her BG daily and says it has been in the 90s. She was been using phenergan [place] and showering in hot water with mild relief of symptoms. ED Course: In the ED, patient was given haloperidol 5mg, rocephin 1g and benadryl 50mg. Also given 1L NS. - Allergies/Adverse Reactions Allergies Allergy/AdvReac Type Severity Reaction Status Date / Time No Known Allergies Allergy Verified 08/05/20 00:39 - Home Medications Medication Instructions Recorded Confirmed Type Insulin Aspart [Novolog Flexpen] 1 ml SC PRN PRN 08/05/20 08/07/20 History Insulin Glargine,Hum.Rec.Anlog 15 units SQ HS 08/05/20 08/07/20 History [Lantus] - History PMHx: asthma, type 1 DM PSHx: tympanostomy tubes b/l FHx: DM both sides type 1 and 2 Social: tobacco use - 2-3 black and milds/day x 1 year, chronic marijuana use with last reported use on 08/01, occasional alcohol use works at [employer] Allergies: none - Review of Systems General: reports: weight/appetite/sleep changes (decreased appetite). denies: fever/chills, fatigue Eyes: denies: eye pain, vision changes ENT: denies: nasal congestion, rhinorrhea Respiratory: denies: cough, congestion, shortness of breath Cardiovascular: denies: chest pain, palpitation, edema Gastrointestinal: reports: nausea, vomiting. denies: diarrhea, constipation, abdominal pain Genitourinary: denies: dysuria, polyuria Skin: denies: rashes, jaundice Musculoskeletal: denies: pain, tenderness Neurological: denies: numbness, syncope, weakness Psychological: denies: anxiety, depression - Vital signs BP: [144/93] HR: [88] RR: [20] Tmax: [98.4F] Pox: [97]% on [RA] Wt: [62kg] - Physical Exam Constitutional: NAD, awake, alert and oriented -Constitutional: Sleeping on bed HEENT: normocephalic and atraumatic, no scleral icterus, MMM Neck: FROM, trachea midline Chest: no-tender to palpation Heart: RRR, normal S1/S2, no murmurs/rubs/gallops, no edema Lungs: CTAB, no respiratory distress Abdomen: soft, non-tender, bowel sounds present Musculoskeletal: normal structure, ROM grossly normal Neurological: no focal deficit Skin: no rash/lesions Heme/Lymphatic: no unusual bruising or bleeding Psychiatric: normal mood and affect FMR H&P: Results - Labs Result Diagrams: 08/07/20 07:19 08/07/20 07:19 Lab results: WBC 17.8 thou/uL (4.8-10.8) H 08/06/20 16:59 Hgb 15.8 g/dL (12.0-16.0) 08/06/20 16:59 Hct 48.7 % (36.0-47.0) H 08/06/20 16:59 MCV 89.3 fL (78.0-98.0) 08/06/20 16:59 Plt Count 336 thou/uL (130-400) 08/06/20 16:59 Neutrophils % 77.7 % (42.0-75.0) H 08/06/20 16:59 VBG pCO2 24.1 mmHg (40.0-50.0) L* 08/06/20 22:09 VBG pO2 196.0 mmHg (35.0-45.0) H 08/06/20 22:09 Sodium 131 mmol/L (136-145) L 08/06/20 16:59 Potassium 5.6 mmol/L (3.5-5.1) H 08/06/20 16:59 Chloride 98 mmol/L (98-107) 08/06/20 16:59 Carbon Dioxide 17 mmol/L (22-29) L 08/06/20 16:59 BUN 10 mg/dL (7.0-18.7) 08/06/20 16:59 Creatinine 0.76 mg/dL (0.6-1.1) 08/06/20 16:59 Glucose 91 mg/dL (70-105) 08/06/20 16:59 Calcium 9.7 mg/dL (7.8-10.44) 08/06/20 16:59 Total Bilirubin 1.4 mg/dL (0.2-1.2) H 08/06/20 16:59 AST 36 U/L (5-34) H 08/06/20 16:59 ALT 16 U/L (8-55) 08/06/20 16:59 Alkaline Phosphatase 92 U/L (40-110) 08/06/20 16:59 Serum Total Protein 8.8 g/dL (6.0-8.3) H 08/06/20 16:59 Albumin 4.4 g/dL (3.5-5.0) 08/06/20 16:59 Lipase Less than 4 U/L (8-78) L 08/06/20 16:59 Urine Ketones 100 mg/dL (Negative) A 08/06/20 16:46 Urine Blood Trace (Negative) A 08/06/20 16:46 Urine Nitrite Negative (Negative) 08/06/20 16:46 Ur Leukocyte Esterase 500 Tessa/uL (Negative) A 08/06/20 16:46 Urine RBC 4-6 HPF (0-3) A 08/06/20 16:46 Urine WBC 11-20 HPF (0-3) A 08/06/20 16:46 Ur Squamous Epith Cells Greater than 50 HPF (0-3) A 08/06/20 16:46 Urine Bacteria 1+ HPF (None Seen) A 08/06/20 16:46 FMR H&P: A/P - Plan 20yo AAF with Type 1 DM, Asthma presents for intractable nausea and vomiting Intractable vomiting 2/2 cannabinoid hyperemesis syndrome Frequent vomiting with inability to stay adequately hydrated since 08/03. [employer] dalia marijuana use, last on 08/01. Initially concerned for DKA given bicarb 17, anion gap of 22, + ketones in urine, + B-hydroxy 2.41. No ABG available. However, repeat BMP showed improvement of anion gap to 11. -Admit to medical -Given lantus 7 units tonight due to lack of PO intake, start home lantus 15 QHS in am -Moderate SS -Repeat BMP, CBC in am -Zofran PRN, Compenzine PRN, Phenergan [place] PRN -Received 1L NS in ED. Start LR @ 150 maintanence fluids overnight -UA dirty. Given rocephin in ED. Will not continue at this time. F/u urine culture Hyponatremia, improved 2/2 poor PO intake Na 131 -> 134 in ED -Monitor with am labs -Encourage PO intake as tolerated. CC diet Hyperkalemia, resolved K 5.6 -> 3.6 in ED -Monitor with am labs Type I DM Most recent A1C 8 -Further management as above Mild-intermittent Asthma -Uses albuterol prn at home Chronic Marijuana use UDS + cannaboids -Encourage hot showers for hyperemesis -Encouraged cessation PCP: tiffanie Shelton PCP Code: Full VTE: SCDs Dispo: Admitted to medical obs, expected LOS < 48 hours FMR H&P: Upper Level - Plan Date/Time: 08/06/202227 IKarla, have evaluated this patient and agree with findings/plan as outlined by learning and development intern resident. Pertinent changes/additions are listed here. 20 yo AAF with T1DM, asthma presenting with recurrent vomiting. Patient was admitted to the hospital several days ago for the same issue and left AMA. R eports continued vomiting, x10 in past 24 hrs. Denies abdominal pain, fever, chills. Reports last used THC >1 week ago. No diarrhea. No PO intake. Initially appeared to be in DKA with anion gap of 16, bicarb 17, B-hydroxy elevated to 2.4. No ABG available. Patient was initially intended to be admitted to IMCU for DKA protocol, however was on ER for a while. On repeat BMP, the anion gap closed to 12 and she will be sent to medical floor. PE: Gen: NAD, sleeping HEENT: MM dry Heart: RRR, no murmurs Lungs: CTAB, no wheezing. No increased work of breathing Abd: soft, nontender Ext: no cyanosis or edema Intractable vomiting likely 2/2 cannabinoid hyperemesis sydrome - patient reports smoking marijuana occasionally, reports improvement with hot showers - Zofran and compazine and [place] phenergan for nausea - Continue LR @ 125 T1DM - will give half of nighttime lantus dose since currently no PO intake - monitor accucheck and am bmp to ensure gap is still closed UA was a dirty catch. s/p rocephin x1 in ED. Will not continue abx. Urine cx ordered PCP: CC - does not see a PCP, has set rider at [facility] Attending: Gee Dispo: admit to medical for observation Addendum - Attending - Attending Attestation Date/Time: 08/06/20 2027 I personally evaluated the patient and discussed the management with resident team I agree with the History, Examination, Assessment and Plan documented above with any addition or exceptions noted below. 20 yo female returns for continued N/V but now found to be in mild DKA with anion gap. Start insulin and IVFs. Trend labs q 4 hours. CAIN antiemetics. N/V still remains improved with hot shower. Encouraged use. Transition to home dose once gap closed. Shania
[2020-08-06] MEDS ORDERED: HUMULIN R 100 UNITS in Sodium Chloride 0.9% 100 ML IVPB SCH (22:30)
[2020-08-06 23:42] LABS: Anion Gap 16 mmol/L (10-20); BUN (Urea Nitrogen) 9 mg/dL (7.0-18.7); Calc. Creatinine Clearance 0 mL/min (70-130); Calcium 8.8 mg/dL (7.8-10.44); Carbon Dioxide 21 mmol/L (22-29); Chloride 101 mmol/L (98-107); Estimated GFR-MDRD Greater than 90; Glucose 143 mg/dL (70-105); Magnesium 1.6 mg/dL (1.6-2.6); Phosphorus 2.8 mg/dL (2.3-4.7); Potassium 3.6 mmol/L (3.5-5.1); Sodium 134 mmol/L (136-145)
[2020-08-06] MEDS ORDERED: Prochlorperazine Edisylate 10 MG in Sodium Chloride 0.9% 50 ML IVPB PRN (23:54)
[2020-08-06] MEDS ORDERED: Dextrose 5% in Water 1,000 ML IV PRN (23:57)
[2020-08-06] MEDS ORDERED: Dextrose 50% Abboject 50 ML SYRINGE SLOW IVP PRN (23:57)
[2020-08-06] MEDS ORDERED: HumaLOG 300 UNITS/3 ML VIAL SC PRN ×2 (23:57)
[2020-08-07] MEDS ORDERED: Insulin Glargine 7 UNITS in Pre-Filled Syringe 1 EACH SC SCH (00:30)
[2020-08-07] MEDS ORDERED: Promethazine HCl 25 MG SUPP PR PRN (00:56)
[2020-08-07 01:25] VITALS: BMI 24.3
[2020-08-07] MEDS: Lactated Ringer's 1,000 ML IV SCH ×3 (01:37→11:29)
[2020-08-07] MEDS: Ondansetron PF 4 MG/2 ML Vial IVP PRN ×2 (01:46→11:28)
[2020-08-07] MEDS ORDERED: Magnesium 2 GM/50 ML 2 GM in Premix Bag 1 BAG IVPB SCH (06:30)
--- NOTE | 2020-08-07 06:48 | PDOC.FM ---
- Subjective Subjective: Pt sleeping comfortably this morning. States she had minimal nausea with no vomiting overnight. Was able to eat some peanut butter crackers with no emesis. Denies abd pain. - Objective Vital Signs & Weight: Vital Signs (12 hours) Temp Pulse Resp BP BP Pulse Ox 08/07/20 05:00 98.4 F 77 18 153/96 H 98 08/07/20 01:30 98.8 F 96 18 140/89 95 08/07/20 00:45 98.8 F 96 18 140/89 95 Weight Weight 62.312 kg I&O: 08/05/20 08/06/20 08/07/20 06:59 06:59 06:59 Intake Total 972 Balance 972 Result Diagrams: 08/07/20 07:19 08/07/20 07:19 Phys Exam - Physical Examination Constitutional: NAD HEENT: moist MMs, sclera anicteric Neck: supple, full ROM Respiratory: no wheezing, clear to auscultation bilateral Cardiovascular: RRR, no significant murmur Gastrointestinal: soft, non-tender, no distention Musculoskeletal: no edema, pulses present Neurological: non-focal, moves all 4 limbs Psychiatric: normal affect, A&O x 3 Skin: no rash, cap refill <2 seconds Dx/Plan - Plan Plan: 20yo AAF with Type 1 DM and marijuana use presents for intractable nausea and vo miting #Intractable vomiting 2/2 cannabinoid hyperemesis syndrome -LR@150ml/hr -upon admission AG 22, but corrected quickly to 12 so no insulin drip started -start home lantus 15u QHS -Moderate SSI -Zofran, Phenergan prn #Hyponatremia -improved. Na 134, 135 when corrected for hyperglycemia #Hyperkalemia, resolved -K 5.6 -> 3.6 -Monitor with am labs #Type I DM -Most recent A1C 8 -continue home meds #Mild-intermittent Asthma -Uses albuterol prn at home #Chronic Marijuana use -Encourage hot showers for hyperemesis -Encouraged cessation PCP: tiffanie Shelton PCP Code: Full VTE: SCDs Dispo: Admitted to medical obs, expected LOS < 48 hours Addendum - Attending - Attending Attestation Date/Time: 08/07/20 [id number] I personally evaluated the patient and discussed the management with Dr. Ordoñez. I agree with the History, Examination, Assessment and Plan documented above with any addition or exceptions noted below.
[2020-08-07 07:54] LABS: Anion Gap 16 mmol/L (10-20); BUN (Urea Nitrogen) 8 mg/dL (7.0-18.7); Calc. Creatinine Clearance 132 mL/min (70-130); Calcium 8.8 mg/dL (7.8-10.44); Carbon Dioxide 19 mmol/L (22-29); Chloride 103 mmol/L (98-107); Estimated GFR-MDRD Greater than 90; Glucose 121 mg/dL (70-105); Potassium 3.7 mmol/L (3.5-5.1); Sodium 134 mmol/L (136-145)
[2020-08-07 08:19] LABS: Hemoglobin 14.3 g/dL (12.0-16.0); Mean Corpuscular HGB CONC 33.2 g/dL (32.0-36.0); Mean Corpuscular Hemoglobin 29.9 pg (27.0-31.0); Mean Corpuscular Volume 90.1 fL (78.0-98.0); Mean Platelet Volume 8.1 fL (7.4-10.4); Red Blood Cell (RBC) Count 4.79 mill/uL (4.20-5.40); White Blood Cell (WBC) Count 15.6 thou/uL (4.8-10.8)
[2020-08-07 08:20] LABS: Lymphocytes 19 % (21-51); MDiff Complete? YES; Monocytes 11 % (0-10); Neutrophil 68 % (42-75); Platelet Clumps MODERATE; Platelet Morphology Comment PLT clumps seen-ADEQ; RBC Morphology Normal
[2020-08-07 11:33] VITALS: TEMP 98.8
[2020-08-07 16:18] VITALS: BP 132/87
[2020-08-07] MEDS ORDERED: Insulin Glargine 15 UNITS in Pre-Filled Syringe 1 EACH SC SCH (21:00)
--- NOTE | 2020-08-08 18:42 | DIS ---
DATE OF ADMISSION: 08/06/2020 DATE OF DISCHARGE: 08/07/2020 ADMITTING ATTENDING: Dr. Marylou Flynn. DISCHARGE ATTENDING: Dr. Ulises Ortez. CONSULTS: None. PROCEDURES: None. PRIMARY DIAGNOSIS: Intractable nausea and vomiting secondary to cannabinoid hyperemesis syndrome. SECONDARY DIAGNOSES: 1. Type 1 diabetes. 2. Mild intermittent asthma. 3. Marijuana use. DISCHARGE MEDICATIONS: 1. Lantus 15 units at bedtime. 2. NovoLog sliding scale as directed. DISCONTINUED MEDICATIONS: None. HISTORY OF PRESENT ILLNESS: The patient is a 20-year-old female with history of chronic marijuana use and type 1 diabetes, who presents to the ED with complaints of nausea and vomiting since 08/03. The patient was admitted to the hospital on 08/04 for same cause and left AMA on 08/05. Reports that since leaving the hospital, her symptoms have stayed the same and she did not use marijuana during this period. She reports 10 episodes of vomiting in the past 24 hours, decreased appetite, and inability to stay hydrated. She has been using Phenergan per rectum and showering w/ hot water for relief of symptoms. Labs in ED showed elevated white count 15.6. This was stable since last admission. Initially concerned for DKA, but repeat BMP showed improvement. Anion gap only 11. The patient was placed on IV fluids and Zofran p.r.n., Phenergan [place] p.r.n. Overnight, had no significant events. Next day, was tolerating some liquids and a few rackers by mouth and the patient decided she wanted to leave. Risks of leaving [facility] were discussed. The patient states she was able to manage her symptoms at home and she signed out. Job ID: [id number] [facility]
== END 2020-08-07 19:12 | disposition left against medical advice (07) ==
LOC: ERS 14:37 → ERHOLD 19:59 → INTOOBSV 19:59 → T4-A 08-07 00:55
PROVIDERS: ADMIT Student in an Organized Health Care Education/Training Program; ATTEND Student in an Organized Health Care Education/Training Program
DX: R11.2 Nausea with vomiting, unspecified (principal); F12.90 Cannabis use, unspecified, uncomplicated; E10.9 Type 1 diabetes mellitus without complications; J45.20 Mild intermittent asthma, uncomplicated; E87.1 Hypo-osmolality and hyponatremia; E87.6 Hypokalemia; F17.290 Nicotine dependence, other tobacco product, uncomplicated; Z79.4 Long term (current) use of insulin
CPT/HCPCS: 36415; 36416; 80048; 80053; 80306; 80307; 81003; 81015; 82010; 82330; 82803; 83690; 83735; 83930; 84100; 85025; 87077; 87086; 96365; 96366; 96375; 96376; G0378; J0696; J0780; J1200; J1630; J1815; J2405; J3475

== ENCOUNTER 2020-12-29 03:08 | Observation (INO) | payer BC, SELFPAY ==
[2020-12-29] MEDS ORDERED: Haloperidol Lactate 5 MG/ML VIAL ONE (03:37)
[2020-12-29] MEDS ORDERED: diphenhydrAMINE 25 MG CAP ONE (04:01)
[2020-12-29 04:05] LABS: #Lymphocytes 1.7 thou/uL (1.20-3.40); #Monocytes 0.8 thou/uL (0.11-0.59); #Neutrophils 12.4 thou/uL (1.40-6.50); %Basophils 0.3 % (0.0-1.0); %Eosinophils 0.1 % (0.0-10.0); %Lymphocytes 11.5 % (21.0-51.0); %Monocytes 5.2 % (0.0-10.0); Hemoglobin 15.8 g/dL (12.0-16.0); Mean Corpuscular Hemoglobin 28.4 pg (27.0-31.0); Mean Corpuscular Volume 88.6 fL (78.0-98.0); Mean Platelet Volume 8.3 fL (7.4-10.4); Platelet Count 264 thou/uL (130-400); Red Blood Cell (RBC) Count 5.56 mill/uL (4.20-5.40); White Blood Cell (WBC) Count 14.9 thou/uL (4.8-10.8)
[2020-12-29 04:19] LABS: BHCG - Serum Negative (NEGATIVE); Pregs Control Background? CLEAR/WHITE (CLR/WHITE); Pregs Control Bar Appear? YES (CONTROL BAR)
[2020-12-29 04:23] LABS: ALT (SGPT) 16 U/L (8-55); AST (SGOT) 12 U/L (5-34); Albumin 4.6 g/dL (3.5-5.0); Alkaline Phosphatase 104 U/L (40-110); Anion Gap 18 mmol/L (10-20); BUN (Urea Nitrogen) 13 mg/dL (7.0-18.7); Bilirubin, Total 1.1 mg/dL (0.2-1.2); Calc. Creatinine Clearance 0 mL/min (70-130); Calcium 10.1 mg/dL (7.8-10.44); Carbon Dioxide 23 mmol/L (22-29); Chloride 97 mmol/L (98-107); Globulin 3.8 g/dL (2.4-3.5); Glucose 456 mg/dL (70-105); Potassium 3.1 mmol/L (3.5-5.1); Protein, Total 8.4 g/dL (6.0-8.3); Sodium 135 mmol/L (136-145)
[2020-12-29] MEDS ORDERED: Insulin Regular 300 UNITS/3 ML VIAL ONE (04:36)
[2020-12-29 04:38] LABS: Bilirubin Negative (Negative); Blood, Urine Negative (Negative); Clarity Clear (Clear); Glucose, Urine (Dipstick) Greater than 1000 mg/dL (Negative); Ketone, Urine 20 mg/dL (Negative); Leukocyte Negative Leu/uL (Negative); Nitrite Negative (Negative); Protein, Urine (Dipstick) Negative (Neg-Trace); Specific Gravity, Urine 1.032 (1.002-1.036); Urobilinogen Normal mg/dL (Less than 2)
[2020-12-29] MEDS ORDERED: Ondansetron PF 4 MG/2 ML Vial IVP PRN (07:09)
[2020-12-29] MEDS ORDERED: Ondansetron ODT 4 MG TAB PO PRN ×2 (07:09→09:17)
[2020-12-29 08:15] VITALS: BMI 26.5
[2020-12-29] MEDS ORDERED: HumaLOG 300 UNITS/3 ML VIAL SC PRN ×2 (09:17)
[2020-12-29] MEDS ORDERED: Promethazine HCl 25 MG SUPP PR PRN (09:17)
[2020-12-29] MEDS ORDERED: Promethazine 25 MG TAB PO PRN (09:17)
[2020-12-29] MEDS ORDERED: Dextrose 5% in Water 1,000 ML IV PRN (09:17)
[2020-12-29] MEDS ORDERED: Dextrose 50% Abboject 50 ML SYRINGE SLOW IVP PRN (09:17)
[2020-12-29] MEDS ORDERED: Sodium Chloride 0.9% 1,000 ML IV SCH (09:30)
[2020-12-29] MEDS ORDERED: Electrolyte Replacement Protocol 1 EACH FS SCH (09:45)
[2020-12-29] MEDS ORDERED: Magnesium 2 GM/50 ML 2 GM in Premix Bag 1 BAG IVPB SCH (10:00)
[2020-12-29] MEDS: Sodium Chloride 0.9% 1,000 ML IV SCH (10:10)
[2020-12-29] MEDS: Potassium Chloride 20 MEQ in Premix Bag 1 BAG IVPB SCH ×2 (11:41→15:27)
[2020-12-29] MEDS ORDERED: Potassium Chloride 20 MEQ TAB PO SCH (15:00)
[2020-12-29] MEDS: HumaLOG 300 UNITS/3 ML VIAL SC SCH ×2 (15:26→22:05)
[2020-12-29 17:09] LABS: SARS-CoV-2 PCR by NAA Not Detected (NotDetected)
[2020-12-29] MEDS: Ondansetron PF 4 MG/2 ML Vial IVP PRN (18:12)
[2020-12-29 20:56] LABS: Anion Gap 16 mmol/L (10-20); BUN (Urea Nitrogen) 12 mg/dL (7.0-18.7); Calc. Creatinine Clearance 96 mL/min (70-130); Calcium 9.2 mg/dL (7.8-10.44); Carbon Dioxide 23 mmol/L (22-29); Chloride 98 mmol/L (98-107); Glucose 337 mg/dL (70-105); Potassium 3.4 mmol/L (3.5-5.1); Sodium 134 mmol/L (136-145)
[2020-12-29] MEDS ORDERED: Lantus 1000 UNITS/10 ML VIAL SC SCH (21:00)
[2020-12-30] MEDS: Sodium Chloride 0.9% 1,000 ML IV SCH ×2 (02:39→06:56)
[2020-12-30] MEDS: Ondansetron PF 4 MG/2 ML Vial IVP PRN (04:01)
[2020-12-30] MEDS ORDERED: ALPRAZolam 0.25 MG TAB PO SCH (04:30)
[2020-12-30 06:02] LABS: #Basophils 0.1 thou/uL (0.0-0.2); #Eosinphils 0.1 thou/uL (0.0-0.7); #Monocytes 1.2 thou/uL (0.11-0.59); #Neutrophils 12.8 thou/uL (1.40-6.50); %Basophils 0.5 % (0.0-1.0); %Eosinophils 0.5 % (0.0-10.0); %Lymphocytes 12.3 % (21.0-51.0); %Monocytes 7.5 % (0.0-10.0); %Neutrophils 79.2 % (42.0-75.0); Hemoglobin 14.9 g/dL (12.0-16.0); Mean Corpuscular HGB CONC 34.9 g/dL (32.0-36.0); Mean Corpuscular Volume 88.8 fL (78.0-98.0); Mean Platelet Volume 7.8 fL (7.4-10.4); Platelet Count 237 thou/uL (130-400); RBC Distribution Width 10.7 % (11.5-14.5); White Blood Cell (WBC) Count 16.2 thou/uL (4.8-10.8)
[2020-12-30 06:22] LABS: Anion Gap 17 mmol/L (10-20); BUN (Urea Nitrogen) 11 mg/dL (7.0-18.7); Calc. Creatinine Clearance 118 mL/min (70-130); Calcium 8.5 mg/dL (7.8-10.44); Carbon Dioxide 20 mmol/L (22-29); Chloride 100 mmol/L (98-107); Glucose 246 mg/dL (70-105); Potassium 3.5 mmol/L (3.5-5.1); Sodium 133 mmol/L (136-145)
[2020-12-30 08:16] VITALS: BP 125/86; TEMP 98
[2020-12-30] MEDS: Potassium Chloride 20 MEQ in Premix Bag 1 BAG IVPB SCH ×2 (08:55→10:39)
[2020-12-30] MEDS: HumaLOG 300 UNITS/3 ML VIAL SC SCH (08:55)
[2020-12-30] MEDS ORDERED: Potassium Chloride 20 MEQ TAB PO SCH (10:15)
== END 2020-12-30 13:06 | disposition home or self-care (01) ==
LOC: ERS 03:08 → T4-B 06:10
PROVIDERS: ADMIT Internal Medicine; ATTEND Internal Medicine
DX: R11.2 Nausea with vomiting, unspecified (principal); E87.6 Hypokalemia; E10.65 Type 1 diabetes mellitus with hyperglycemia; J45.909 Unspecified asthma, uncomplicated; F17.290 Nicotine dependence, other tobacco product, uncomplicated; Z20.822 Contact with and (suspected) exposure to COVID-19
CPT/HCPCS: 36415; 36416; 80048; 80053; 81003; 83735; 84703; 85025; 87635; 96374; 96375; 96376; G0378; J1630; J1815; J2405; J3475; J3480; Q0163; U0003; U0005

== ENCOUNTER 2023-06-15 19:40 | Emergency (ER) | payer MEDICAID, OTHER ==
[2023-06-15 20:08] LABS: #Eosinphils 0.3 thou/uL (0.0-0.7); #Monocytes 0.7 thou/uL (0.11-0.59); #Neutrophils 7.4 thou/uL (1.40-6.50); %Basophils 0.4 % (0.0-1.0); %Eosinophils 2.3 % (0.0-10.0); %Lymphocytes 22.2 % (21.0-51.0); %Monocytes 6.7 % (0.0-10.0); Mean Corpuscular HGB CONC 32.6 g/dL (32.0-36.0); Mean Corpuscular Hemoglobin 28.5 pg (27.0-31.0); Mean Corpuscular Volume 87.6 fl (78.0-98.0); Mean Platelet Volume 10.3 fL (7.4-10.4); Platelet Count 279 10x3/uL (130-400); RBC Distribution Width 11.7 % (11.5-14.5); Red Blood Cell (RBC) Count 4.91 mill/uL (4.20-5.40); White Blood Cell (WBC) Count 10.9 10x3/uL (4.8-10.8)
[2023-06-15 20:40] LABS: ALT (SGPT) 24 U/L (8-55); AST (SGOT) 16 U/L (5-34); Albumin 4.2 g/dL (3.5-5.0); Alkaline Phosphatase 147 U/L (40-110); Anion Gap 15 mmol/L (10-20); BUN (Urea Nitrogen) 16 mg/dL (7.0-18.7); Bilirubin, Total 0.2 mg/dL (0.2-1.2); Calc. Creatinine Clearance 0 mL/min (70-130); Calcium 10.5 mg/dL (7.8-10.44); Carbon Dioxide 25 mmol/L (22-29); Chloride 98 mmol/L (98-107); Estimated GFR 71; Globulin 3.9 g/dL (2.4-3.5); Lipase 22 U/L (8-78); Potassium 4.2 mmol/L (3.5-5.1); Protein, Total 8.1 g/dL (6.0-8.3); Sodium 134 mmol/L (136-145)
[2023-06-15 20:45] LABS: Glucose 405 mg/dL (70-105)
[2023-06-15 21:44] LABS: Bacteria/HPF None Seen HPF (None Seen); Bilirubin Negative (Negative); Blood, Urine Negative (Negative); CAUTI Indications for Culture Pelvic or flank pain; Clarity Clear (Clear); Glucose, Urine (Dipstick) Greater than 1000 mg/dL (Negative); Ketone, Urine Negative (Negative); Leukocyte Negative Leu/uL (Negative); Nitrite Negative (Negative); Protein, Urine (Dipstick) Negative (Neg-Trace); RBC/HPF 0-3 HPF (0-3); Specific Gravity, Urine 1.036 (1.002-1.036); Squamous Epithelial 0-3 HPF (0-3); Urobilinogen Normal mg/dL (Less than 2); WBC/HPF 0-3 HPF (0-3)
[2023-06-15 21:45] LABS: Pregnancy Test - Urine (BHCG) Negative (Negative); Pregu Control Background? CLEAR/WHITE (CLR/WHITE); Pregu Control Bar Appear? YES (CONTROL BAR); Specific Gravity 1.036 (1.002-1.036); Urine Culture Reflex No No
== END 2023-06-15 22:12 | disposition home or self-care (01) ==
LOC: ERS 19:40
DX: N93.9 Abnormal uterine and vaginal bleeding, unspecified (principal); E83.52 Hypercalcemia; E10.65 Type 1 diabetes mellitus with hyperglycemia
CPT/HCPCS: 36415; 80053; 81001; 81025; 83690; 85025; 99284

== ENCOUNTER 2023-10-25 09:02 | Emergency (ER) | payer OTHER ==
[2023-10-25] MEDS ORDERED: Dicyclomine 20 MG TAB ONE (09:49)
[2023-10-25] MEDS ORDERED: Albuterol 200 PUFF (6.7GM INHALER) ONE (09:50)
[2023-10-25] MEDS ORDERED: Ondansetron ODT 4 MG TAB ONE (09:50)
== END 2023-10-25 10:20 | disposition home or self-care (01) ==
LOC: ERS 09:02
DX: R11.10 Vomiting, unspecified (principal); R19.7 Diarrhea, unspecified; E10.65 Type 1 diabetes mellitus with hyperglycemia; F17.200 Nicotine dependence, unspecified, uncomplicated; Z79.4 Long term (current) use of insulin
CPT/HCPCS: 36416; Q0162

== ENCOUNTER 2024-04-28 03:01 | Emergency (ER) | payer MEDICAID, OTHER, SELFPAY ==
[2024-04-28 04:46] LABS: Bacteria/HPF None Seen HPF (None Seen); Bilirubin Negative (Negative); Blood, Urine Negative (Negative); CAUTI Indications for Culture Dysuria,urgency,freq; Clarity Clear (Clear); Glucose, Urine (Dipstick) Greater than 1000 mg/dL (Negative); Ketone, Urine Negative (Negative); Leukocyte Negative Leu/uL (Negative); Nitrite Negative (Negative); Protein, Urine (Dipstick) 10 mg/dL (Neg-Trace); RBC/HPF 0-3 HPF (0-3); Specific Gravity, Urine 1.033 (1.002-1.036); Urobilinogen Normal mg/dL (Less than 2); WBC/HPF 0-3 HPF (0-3)
[2024-04-28 04:52] LABS: Pregnancy Test - Urine (BHCG) Negative (Negative); Pregu Control Background? CLEAR/WHITE (CLR/WHITE); Pregu Control Bar Appear? YES (CONTROL BAR); Specific Gravity 1.033 (1.002-1.036)
[2024-04-28 04:53] LABS: Urine Culture Reflex No No
[2024-04-28] MEDS ORDERED: Insulin Regular, Human 100 UNIT/ML 10 ML VIAL ONE (04:55)
[2024-04-28 04:59] LABS: #Basophils 0.05 10x3/uL (0.0-0.2); %Basophils 0.4 % (0.0-1.0); %Eosinophils 0.9 % (0.0-10.0); %Lymphocytes 15.9 % (21.0-51.0); %Monocytes 7.1 % (0.0-10.0); %Neutrophils 75.3 % (42.0-75.0); Hematocrit 41.8 % (36.0-47.0); Hemoglobin 13.3 g/dL (12.0-16.0); Mean Corpuscular HGB CONC 31.8 g/dL (32.0-36.0); Mean Corpuscular Hemoglobin 28.4 pg (27.0-31.0); Mean Corpuscular Volume 89.3 fL (78.0-98.0); Mean Platelet Volume 10.5 fL (7.4-10.4); Platelet Count 225 10x3/uL (130-400); RBC Distribution Width 12.5 % (11.5-14.5); Red Blood Cell (RBC) Count 4.68 mill/uL (4.20-5.40)
[2024-04-28 05:15] LABS: Troponin I Less than 0.010 ng/mL (< 0.028)
[2024-04-28 05:24] LABS: ALT (SGPT) 14 U/L (8-55); AST (SGOT) 18 U/L (5-34); Albumin 3.5 g/dL (3.5-5.0); Alkaline Phosphatase 128 U/L (40-110); Anion Gap 15 mmol/L (10-20); BUN (Urea Nitrogen) 19 mg/dL (7.0-18.7); Bilirubin, Total 0.2 mg/dL (0.2-1.2); Calc. Creatinine Clearance 0 mL/min (70-130); Calcium 9.2 mg/dL (7.8-10.44); Carbon Dioxide 17 mmol/L (22-29); Chloride 101 mmol/L (98-107); Estimated GFR 56; Globulin 3.5 g/dL (2.4-3.5); Glucose 619 mg/dL (70-105); Potassium 4.2 mmol/L (3.5-5.1); Sodium 129 mmol/L (136-145)
[2024-04-28 06:32] LABS: Actual Bicarbonate (HCO3v) 19.8 mEq/L (22-28); Base Excess -6.4 mEq/L (-2.0 to +3.0); Calcium, Ionized (venous) 1.21 mmol/L (1.16-1.32); Chloride (VBG) 101 mmol/L (98-106); Hematocrit-VBG 44 % (36.0-47.0); Hemoglobin (Hb) 14.9 g/dL (11.7-15.5); Potassium (VBG) 3.92 mmol/L (3.70-5.30); Sodium 139 mmol/L (133-146); pH (venous) 7.294 (7.32-7.43)
[2024-04-28 06:47] LABS: Anion Gap 16 mmol/L (10-20); BUN (Urea Nitrogen) 17 mg/dL (7.0-18.7); Calc. Creatinine Clearance 0 mL/min (70-130); Calcium 9.4 mg/dL (7.8-10.44); Carbon Dioxide 19 mmol/L (22-29); Chloride 105 mmol/L (98-107); Estimated GFR 67; Glucose 375 mg/dL (70-105); Potassium 3.8 mmol/L (3.5-5.1); Sodium 136 mmol/L (136-145)
== END 2024-04-28 07:25 ==
LOC: ERS 03:01
DX: E10.65 Type 1 diabetes mellitus with hyperglycemia (principal); E87.20 Acidosis, unspecified
CPT/HCPCS: 36415; 80053; 81001; 81025; 82010; 82805; 83880; 84484; 85025; 93005; 96361; 96374; J1815